=== PATIENT | female | born 1955 | race Caucasian/White ===

== ENCOUNTER 2016-12-22 09:46 | Emergency (ER) | payer OTHER ==
[~2016-12-22 09:46] MED LIST: FLEXERIL10 MG PO; GLUMETZA500 MG/BOT PO; LASIX20 MG PO; MOTRIN600 MG PO; MULTIVITAMINS1 EAC6 PO
[2016-12-22] MEDS ORDERED: BACTRIM DS TAB1 EAC2 PO (10:03)
[2016-12-22] MEDS ORDERED: SILVADENE20 G1 TP (10:25)
[2016-12-22] MEDS ORDERED: HYDROCODON-ACE1 EA16 PO (10:25)
== END 2016-12-22 11:30 ==
LOC: EDMED 09:46
DX: L03.115 Cellulitis of right lower limb (principal); F17.210 Nicotine dependence, cigarettes, uncomplicated; Z88.0 Allergy status to penicillin